=== PATIENT | female | born 1960 | race Caucasian/White ===

== ENCOUNTER → 2016-10-23 | Outpatient (CLI) | payer BC ==
[~2016-10-23] MED LIST: ALLEGRA180 MG PO; ALLEGRA30 MG/5 ML PO; ALLEGRA60 M1 PO; ALLEGRA60 MG PO; ALTACE2.5 MG PO; AMLOPIDINE; ASPIRIN 32325 MG/TAB PO; ASPIRIN E.C. 8181 MG PO; ATIVAN 0.50.5 MG/TAB PO; CARDENE 20MG CA20 M1 PO; CARDENE20 MG PO; CRESTOR 10MG10 MG PO; EFFIENT10 MG PO; FIORICET 325 MG1 TA1 PO; FIORICET 325 MG1 TAB PO; HYDROCODONE/APAP; IMDUR60 MG PO; IMITREX25 MG PO; IMITREX50 MG PO; LIPITOR 40MG TA40 MG PO; LIPITOR80 MG PO; LOPRESSOR 225 MG/TAB PO; LOPRESSOR PO; LORTAB 7.5/5001 TAB PO; LOVENOX 4040 MG/0.4 SQ; NEURONTIN300 MG/CAP PO; NITROSTAT0.4 MG/TAB SL; NO HOME MEDICATIONS; OXYCODONE15 MG PO; OXYCONTIN15 MG PO; TOPAMAX50 MG PO; ULTRAM50 MG PO; ZOCOR80 MG PO; ZOFRAN4 M1 PO; ZOLOFT; ZOLOFT 50MG50 MG PO
== END ==
LOC: MC.RAD 08:00
DX: Z12.31 Encounter for screening mammogram for malignant neoplasm of breast (principal)

== ENCOUNTER 2017-04-22 12:48 | Observation (INO) | payer BC ==
[~2017-04-22] VITALS: Ht 154.9 cm; Wt 70.1 kg
[~2017-04-22 12:48] MED LIST changes: -CARDENE 20MG CA20 M1 PO
[2017-04-22 13:18] LABS: BASO % 0.5 % (0.0-2.0); EOS # 0.2 (0.0-0.7); EOS % 3.8 % (0-4.0); GRAN # 2.1 (1.4-6.5); GRAN % 34.6 % (42.2-75.2); HEMOGLOBIN 12.2 g/dl (12.5-16.0); LYMPH # 3.2 (1.2-3.4); LYMPH % 52.8 % (20.0-51.0); MEAN CELL VOLUME 95 fl (80.0-100.0); MEAN CORPUSCULAR HEMOGLOBIN 32 pg (27.0-31.0); MEAN CORPUSCULAR HGB CONC 34 g/dl (33.0-37.0); MONO # 0.5 (0.1-0.6); PLATELET COUNT 179 K/mm3 (130-400); RED BLOOD COUNT 3.78 M/mm3 (4.10-5.30); REDCELL DISTRIBUTION WIDTH-CV 12.9 % (11.5-14.5)
[2017-04-22 13:25] LABS: INR 0.9 (0.8-3.0); PROTHROMBIN TIME 10.4 SECONDS (9.7-12.8)
[2017-04-22 13:28] LABS: ADJUSTED CALCIUM 8.9 mg/dL (8.4-10.2); ALANINE AMINOTRANSFERASE 40 U/L (9-52); ALBUMIN 3.9 gm/dL (3.5-5.0); ALKALINE PHOSPHATASE 61 U/L (50-136); ANION GAP 13 mmol/L (7-16); BILIRUBIN,TOTAL 0.3 mg/dL (0.0-1.0); BLOOD UREA NITROGEN 15 mg/dL (7-17); CALCIUM 8.8 mg/dL (8.4-10.2); CARBON DIOXIDE 23 mmol/L (22-30); CHLORIDE 106 mmol/L (98-107); CREATININE, serum 0.69 mg/dL (0.52-1.25); GLUCOSE 100 mg/dL (74-106); LIPASE 245 U/L (23-300); POTASSIUM 3.9 mmol/L (3.4-5.0); SODIUM 141 mmol/L (137-145)
[2017-04-22 13:40] LABS: B-TYPE NATRIURETIC PEPTIDE 123 pg/mL (0-125)
[2017-04-22 13:45] LABS: TROPONIN-I < 0.012 ng/mL (0.000-0.034)
[2017-04-22 17:03] VITALS: BP 114/65; PULSE 55; TEMP 97.5
[2017-04-22 17:55] LABS: PARTIAL THROMBOPLASTIN TIME 33.5 SECONDS (26.0-37.0)
[2017-04-22 19:09] VITALS: BP 101/54; PULSE 50; TEMP 97.7
[2017-04-23] VITALS (17 sets, daily range): BP systolic 89–129; BP diastolic 55–68; PULSE 50–62; TEMP 97.3–98.3
[2017-04-23 08:08] LABS: CHOLESTEROL 192 mg/dL (120-200); TRIGLYCERIDE 143 mg/dL
[2017-04-23 08:09] LABS: HDL CHOLESTEROL 46 mg/dL; LDL CHOLESTEROL 117 mg/dL
[2017-04-23 08:19] LABS: TROPONIN-I < 0.012 ng/mL (0.000-0.034)
[2017-04-24] VITALS (9 sets, daily range): BP systolic 91–112; BP diastolic 53–60; PULSE 52–63; TEMP 97.4–97.9
[2017-04-24] MEDS ORDERED: CARDENE 20MG CA20 M1 PO (11:23)
== END 2017-04-24 13:12 | disposition home or self-care (01) ==
LOC: COL.ER 12:48 → MEDICAL 14:47
PROVIDERS: Emergency Medicine; Internal Medicine
DX: R07.89 Other chest pain (principal); I10 Essential (primary) hypertension; E78.5 Hyperlipidemia, unspecified; G43.909 Migraine, unspecified, not intractable, without status migrainosus; C18.9 Malignant neoplasm of colon, unspecified; C79.62 Secondary malignant neoplasm of left ovary; C79.61 Secondary malignant neoplasm of right ovary; I25.2 Old myocardial infarction; K21.9 Gastro-esophageal reflux disease without esophagitis; Z90.49 Acquired absence of other specified parts of digestive tract; Z90.79 Acquired absence of other genital organ(s); E66.3 Overweight
CPT/HCPCS: 99239; C1760; C1894; G0378; J1644; J2250; J3010; J7030; Q9967

== ENCOUNTER → 2017-05-27 | Outpatient (CLI) | payer BC ==
[~2017-05-27] MED LIST changes: +CARDENE 20MG CA20 M1 PO
== END ==
LOC: COL.RAD 10:26
DX: N20.0 Calculus of kidney (principal); N20.1 Calculus of ureter
CPT/HCPCS: J1644; Q9967

== ENCOUNTER → 2017-09-15 | Outpatient (CLI) | payer BC | LOC: COL.RAD 10:24 | DX: C18.9 Malignant neoplasm of colon, unspecified (principal); C79.60 Secondary malignant neoplasm of unspecified ovary; N20.0 Calculus of kidney; R91.1 Solitary pulmonary nodule; M54.5 Low back pain; Z95.828 Presence of other vascular implants and grafts; Z90.49 Acquired absence of other specified parts of digestive tract; Z98.890 Other specified postprocedural states | CPT/HCPCS: J1644; Q9967 ==

== ENCOUNTER → 2018-08-05 | Outpatient (CLI) | payer BC | LOC: MC.RAD 06:57 | DX: Z12.31 Encounter for screening mammogram for malignant neoplasm of breast (principal) ==

== ENCOUNTER → 2018-10-28 | Outpatient (CLI) | payer BC | LOC: COL.RAD 08:19 | DX: C18.7 Malignant neoplasm of sigmoid colon (principal); R91.1 Solitary pulmonary nodule; N20.0 Calculus of kidney; Z90.49 Acquired absence of other specified parts of digestive tract; Z90.710 Acquired absence of both cervix and uterus; Z98.0 Intestinal bypass and anastomosis status | CPT/HCPCS: J1644; Q9967 ==

== ENCOUNTER → 2019-08-10 | Outpatient (CLI) | payer MEDICARE, BC | LOC: MC.RAD 07:00 | DX: Z12.31 Encounter for screening mammogram for malignant neoplasm of breast (principal) ==

== ENCOUNTER → 2019-11-24 | Outpatient (CLI) | payer MEDICARE, BC ==
[~2019-11-24] VITALS: Ht 154.9 cm; Wt 79.3 kg
[~2019-11-24] MED LIST changes: +ASPIRIN 81M81 MG/TA2 PO; +MASON NATURAL1200 MG PO; +VALIUM 2MG T2 MG/TAB PO
[2019-11-24 13:32] VITALS: BP 127/68; PULSE 63
[2019-11-24 14:20] VITALS: BP 125/88; PULSE 66
--- NOTE | 2019-11-24 14:20 | NUR ---
PT POSITIONED IN CT SCANNER, DR LUNA INTO START PROCEDURE.
[2019-11-24 14:30] VITALS: BP 139/85; PULSE 89
--- NOTE | 2019-11-24 14:35 | NUR ---
SPECIMAN OBTAINED IN FORMULIN, PROCEDURE COMPLETED, BANDAID OVER LEFT ABD. IS CLEAN AND DRY.
[2019-11-24 14:40] VITALS: BP 139/80; PULSE 70
[2019-11-24 15:00] VITALS: BP 137/73; PULSE 60
== END ==
LOC: COL.RAD 13:00
DX: C18.7 Malignant neoplasm of sigmoid colon (principal)

== ENCOUNTER 2020-06-29 22:19 | Observation (INO) | payer OTHER, MEDICARE ==
[~2020-06-29] VITALS: Ht 154.9 cm; Wt 63.9 kg
[~2020-06-29 22:19] MED LIST changes: +ALLEGRA 180MG180 MG PO; -ALLEGRA30 MG/5 ML PO; -ATIVAN 0.50.5 MG/TAB PO; +ATIVAN 1MG T1 MG/TAB PO; +NORCO 325 MG-7.1 TAB PO
[2020-06-29 23:14] LABS: BASO % 0.4 % (0.0-2.0); EOS # 0.1 (0.0-0.7); EOS % 1.9 % (0-4.0); GRAN # 1.8 (1.4-6.5); HEMATOCRIT 40.6 % (37.0-47.0); HEMOGLOBIN 13.4 g/dl (12.5-16.0); LYMPH # 2.6 (1.2-3.4); LYMPH % 56.7 % (20.0-51.0); MEAN CELL VOLUME 92 fl (80.0-100.0); MEAN CORPUSCULAR HEMOGLOBIN 30 pg (27.0-31.0); MEAN CORPUSCULAR HGB CONC 33 g/dl (33.0-37.0); MEAN PLATELET VOLUME 9.6 fl (7.4-10.4); MONO # 0.1 (0.1-0.6); PLATELET COUNT 260 K/mm3 (130-400); RED BLOOD COUNT 4.43 M/mm3 (4.10-5.30); REDCELL DISTRIBUTION WIDTH-CV 16.5 % (11.5-14.5)
[2020-06-29 23:26] LABS: ALANINE AMINOTRANSFERASE 49 U/L (4-34); ALBUMIN 4.2 gm/dL (3.5-5.0); ALKALINE PHOSPHATASE 93 U/L (50-136); ANION GAP 12 mmol/L (7-16); AST,SGOT 41 U/L (15-37); BILIRUBIN,TOTAL 0.5 mg/dL (0.0-1.0); BLOOD UREA NITROGEN 19 mg/dL (7-17); CALCIUM 9.6 mg/dL (8.4-10.2); CARBON DIOXIDE 22 mmol/L (22-30); CHLORIDE 102 mmol/L (98-107); CREATININE, serum 0.82 (0.52-1.25); GLUCOSE 138 mg/dL (74-106); LIPASE 60 U/L (23-300); POTASSIUM 4.2 mmol/L (3.4-5.0); SODIUM 136 mmol/L (137-145); TOTAL PROTEIN 7.2 gm/dL (6.4-8.2)
[2020-06-29 23:27] LABS: C-REACTIVE PROTEIN < 0.5 mg/dL (0.0-0.9)
[2020-06-30] VITALS (9 sets, daily range): BP systolic 111–143; BP diastolic 62–83; PULSE 59–65; TEMP 97.9–98.2
[2020-06-30 01:17] LABS: COLLECTION METHOD CLEAN CATCH
[2020-06-30 01:52] LABS: MUCOUS Present /lpf; PH 6 (5-8); SQUAMOUS EPITHELIAL 0-2 /hpf; URINE APPEARANCE Clear; URINE BACTERIA None Seen /hpf; URINE BILIRUBIN Negative (NEGATIVE); URINE BLOOD 3+ (NEGATIVE); URINE COLOR Straw; URINE GLUCOSE Negative (NEGATIVE); URINE KETONE Negative (NEGATIVE); URINE LEUKOCYTE ESTERASE 1+ (NEGATIVE); URINE NITRATE Negative (NEGATIVE); URINE PROTEIN(semi-quant) Negative (NEGATIVE); URINE UROBILINOGEN Negative (NEGATIVE)
--- NOTE | 2020-06-30 03:45 | NUR ---
PT ADMITTED TO ROOM 343 PER BED FOR LT KIDNEY STONE. HX COLON CANCER - AND RECEIVING CHEMO 2 DAYS AGO. PAIN CONTROLLED AT LEVEL 2/10 WITH DILAUDID FROM ER. NO N/V AT THIS TIME. LT ABD TENDERNESS.. INFUSAPORT TO RT CHEST- NON ACCESSED AT THIS TIME. IV NS AT 150CC/HR RT AC SITE. REVIEWED PLAN OF CARE. ORIENTED TO ROOM. CALL LIGHT IN REACH.
[2020-06-30] MEDS ORDERED: MARINOL5 MG PO (04:37)
[2020-06-30] MEDS ORDERED: EPA FISH OIL1 SGL PO (04:39)
[2020-06-30] MEDS ORDERED: IMITREX50 MG PO (04:54)
[2020-06-30] MEDS ORDERED: LOMOTIL 0.025 M1 TAB PO (04:56)
[2020-06-30] MEDS ORDERED: BOTOX 100100 U/VIAL INJ (04:58)
[2020-06-30] MEDS ORDERED: ZOFRAN 4MG T4 MG/TAB PO (04:59)
--- NOTE | 2020-06-30 05:19 | NUR ---
PT RESTING QUIETLY. NO DISTRESS.
--- NOTE | 2020-06-30 08:00 | NUR ---
PATIENT IS RESTING IN BED THIS MORNING AND IS NPO FOR SURGERY. MORNING SHIFT ASSESSMENT COMPLETED AT THIS TIME. PATIENT DENIES PAIN AT REST. IV TO INT FOR SHOWER. CALL LIGHT IN REACH. PATIENT DENIES ANY OTHER NEEDS AT THIS TIME.
--- NOTE | 2020-06-30 10:35 | NUR ---
PATIENT CONNECTED TO PRE-OP IV FLUIDS HUNG TO GRAVITY FLOW TUBING AND INFUSING TO RIGHT AC IV. PATIENT CONSENT FORM HAS BEEN SIGNED AND IS ON THE PATIENTS CHART. PATIENT TAKEN TO SUAD-OP VIA BED BY DIANA SIDDIQUI. WILL WAIT FOR PATIENT ARRIVAL BACK TO ROOM 343 POST-OP.
--- NOTE | 2020-06-30 12:12 | NUR ---
PATIENT ARRIVED BACK TO ROOM 343 VIA BED FROM PACU. PATIENT IS DROWSY BUT AWAKE. PATIENT TOLERATING CLEAR LIQUIDS. POST-OP VSS. WILL ORDER LUNCH TRAY. WILL CONTINUE TO MONITOR.
--- NOTE | 2020-06-30 14:23 | NUR ---
Plan: To return home with Spouse Bakari as care support. Assess: Patient gave permission to talk in front of spouse. Pateint reports that pcp is Dr. Santana with Dr. Montoya, Dr. Carmona, as specialist. Patient reports that uses [facility] or [facility] for RX. Patient has POA with . Action: Declined [facility], educated on services and supports. No additional concerns identified.
--- NOTE | 2020-06-30 15:00 | NUR ---
PATIENT IS EATING, DRINKING AND VOIDING POST-OP. PATIENT REPORTS SOME DISCOMFORT IN THE LEFT BACK FROM THE STENT, OTHERWISE OVERALL PAIN IS IMPROVED. POST-OP VSS. PATIENTS RIGHT AC INT DISCONTINUED PER PENDING DISCHARGE. TIP INTACT. PATIENT TOLERATED WELL. DISCHARGE INSTRUCTIONS REVIEWED WITH PATIENT AND . QUESTIONS SOUGHT AND ANSWERED. PATIENT PERSONAL BELONGINGS GATHERED.
== END 2020-06-30 15:15 | disposition home or self-care (01) ==
LOC: COL.ER 22:19 → SURG 06-30 02:17
PROVIDERS: Emergency Medicine; ADMIT Urology
DX: N20.2 Calculus of kidney with calculus of ureter (principal); I25.2 Old myocardial infarction; I25.10 Atherosclerotic heart disease of native coronary artery without angina pectoris; G47.33 Obstructive sleep apnea (adult) (pediatric); G89.29 Other chronic pain; G43.909 Migraine, unspecified, not intractable, without status migrainosus; Z92.21 Personal history of antineoplastic chemotherapy; Z90.710 Acquired absence of both cervix and uterus; Z90.49 Acquired absence of other specified parts of digestive tract; Z85.038 Personal history of other malignant neoplasm of large intestine; Z88.8 Allergy status to other drugs, medicaments and biological substances; Z79.899 Other long term (current) drug therapy
CPT/HCPCS: C1769; C2617; G0378; J0696; J1170; J2405; J2704; J3010; J7030; Q9967

== ENCOUNTER → 2020-09-11 | Outpatient (CLI) | payer OTHER, MEDICARE ==
[~2020-09-11] MED LIST changes: +BOTOX 100100 U/VIAL INJ; +EPA FISH OIL1 SGL PO; +LOMOTIL 0.025 M1 TAB PO; +MARINOL5 MG PO; +ZOFRAN 4MG T4 MG/TAB PO
== END ==
LOC: MC.RAD 08:00
DX: Z12.31 Encounter for screening mammogram for malignant neoplasm of breast (principal)

== ENCOUNTER 2021-01-22 15:30 | Outpatient (RCR) | payer OTHER, MEDICARE | END 2021-03-16 | disposition home or self-care (01) | LOC: WSC | DX: M54.5 Low back pain (principal) ==

== ENCOUNTER → 2021-05-16 | Outpatient (CLI) | payer OTHER, MEDICARE | LOC: COL.RAD 08:09 | DX: C18.9 Malignant neoplasm of colon, unspecified (principal); R91.1 Solitary pulmonary nodule | CPT/HCPCS: Q9967 ==

== ENCOUNTER → 2021-12-05 | Outpatient (CLI) | payer OTHER, MEDICARE | LOC: MC.RAD 06:57 | DX: Z12.31 Encounter for screening mammogram for malignant neoplasm of breast (principal) ==

== ENCOUNTER → 2022-06-09 | Outpatient (CLI) | payer OTHER, MEDICARE ==
[~2022-06-09] VITALS: Ht 154.9 cm; Wt 68.0 kg
[~2022-06-09] MED LIST changes: +FLORASTOR250 MG PO
[2022-06-09 07:45] VITALS: BP 104/73; PULSE 60; TEMP 98.1
[2022-06-09 08:55] VITALS: BP 112/71; PULSE 54
[2022-06-09 09:30] VITALS: BP 93/60; PULSE 59
[2022-06-09 09:50] VITALS: BP 99/64; PULSE 59
== END ==
LOC: COL.RAD 07:18
DX: C18.7 Malignant neoplasm of sigmoid colon (principal)
CPT/HCPCS: 32106

== ENCOUNTER → 2023-09-22 | Outpatient (CLI) | payer OTHER, MEDICARE ==
[~2023-09-22] MED LIST changes: +PROTONIX 40MG T40 MG PO
== END ==
LOC: MHCPAIN 10:02
DX: M54.50 Low back pain, unspecified (principal); M53.3 Sacrococcygeal disorders, not elsewhere classified; M47.816 Spondylosis without myelopathy or radiculopathy, lumbar region; D17.1 Benign lipomatous neoplasm of skin and subcutaneous tissue of trunk
CPT/HCPCS: G0463

== ENCOUNTER → 2023-10-18 | Outpatient (CLI) | payer MEDICARE, BC ==
[~2023-10-18] MED LIST changes: +Iohexol 300 - 10 ML VIAL ONE; +Lidocaine PF 1% (10 MG/ML) 5 ML VIAL ONE; +Triamcinolone 40 MG/ML 1 ML VIAL ONE
== END ==
LOC: MHCPAIN 10:43
DX: M47.898 Other spondylosis, sacral and sacrococcygeal region (principal); M54.50 Low back pain, unspecified; M53.3 Sacrococcygeal disorders, not elsewhere classified
CPT/HCPCS: J3301; Q9967

== ENCOUNTER → 2024-01-03 | Outpatient (CLI) | payer MEDICARE, BC ==
[~2024-01-03] MED LIST changes: -Lidocaine PF 1% (10 MG/ML) 5 ML VIAL ONE; -Triamcinolone 40 MG/ML 1 ML VIAL ONE
== END ==
LOC: MHCPAIN 12-27 14:22
DX: M46.1 Sacroiliitis, not elsewhere classified (principal); M53.3 Sacrococcygeal disorders, not elsewhere classified; M54.50 Low back pain, unspecified
CPT/HCPCS: G0260; J0665; J1040; Q9967

== ENCOUNTER → 2024-02-07 | Outpatient (CLI) | payer MEDICARE, BC ==
[~2024-02-07] MED LIST changes: -Iohexol 300 - 10 ML VIAL ONE
== END ==
LOC: MHCPAIN 10:40
DX: M54.50 Low back pain, unspecified (principal); M53.3 Sacrococcygeal disorders, not elsewhere classified; M79.18 Myalgia, other site; M47.816 Spondylosis without myelopathy or radiculopathy, lumbar region
CPT/HCPCS: G0463

== ENCOUNTER → 2024-04-10 | Outpatient (CLI) | payer MEDICARE, BC | LOC: MHCPAIN 12:52 | DX: M54.50 Low back pain, unspecified (principal); M53.3 Sacrococcygeal disorders, not elsewhere classified; M79.18 Myalgia, other site; M47.816 Spondylosis without myelopathy or radiculopathy, lumbar region | CPT/HCPCS: G0463 ==

== ENCOUNTER → 2024-07-14 | Outpatient (CLI) | payer MEDICARE, BC | LOC: MC.RAD 13:34 | DX: Z12.31 Encounter for screening mammogram for malignant neoplasm of breast (principal) ==